=== PATIENT | male | born 1980 | race Caucasian/White ===

== ENCOUNTER 2016-06-04 18:56 | Emergency (ER) | payer OTHER ==
--- NOTE | 2016-06-04 19:10 | EDPHY ---
H & P Stated Complaint: VENTURA/Fatigue/ Back Pain Time Seen by Provider: 06/04/16 18:57 HPI/ROS: CHIEF COMPLAINT: Occipital headache HISTORY OF PRESENT ILLNESS: The patient presents to the ED with a 1 day history of an occipital headache. The patient reports his headache is moderate to severe in nature. He woke with a headache today. The patient denies a history of thunderclap headache. He is not anticoagulated. He has no prior history of headaches. The patient denies any fever, neck stiffness, numbness, weakness or additional complaints. He does have some pain in his thoracic spinal muscle groups bilaterally. REVIEW OF SYSTEMS: A comprehensive 10 point review of systems is otherwise negative aside from elements mentioned in the history of present illness. Source: Patient Exam Limitations: No limitations - Personal History Current Tetanus/Diphtheria Vaccine: Yes Current Tetanus Diphtheria and Acellular Pertussis (TDAP): Yes - Medical/Surgical History Hx Asthma: No Hx Chronic Respiratory Disease: No Hx Diabetes: No Hx Cardiac Disease: No Hx Renal Disease: No Hx Cirrhosis: No Hx Alcoholism: No Hx HIV/AIDS: No Hx Splenectomy or Spleen Trauma: No - Social History Smoking Status: Never smoked Alcohol Use: None Drug Use: None - Physical Exam Exam: General Appearance: Alert, no distress Eyes: Pupils equal and round no pallor or injection ENT, Mouth: Mucous membranes moist Respiratory: There are no retractions, lungs are clear to auscultation Cardiovascular: Regular rate and rhythm Gastrointestinal: Abdomen is soft and nontender, no masses, bowel sounds normal Neurological: A&O, normal motor function, normal sensory exam, normal cranial nerves Skin: Warm and dry, no rashes Musculoskeletal: Neck is supple nontender Extremities: symmetrical, full range of motion Constitutional: Initial Vital Signs Temperature (C) 37.3 C 06/04/16 18:58 Heart Rate 99 06/04/16 18:58 Respiratory Rate 16 06/04/16 18:58 Blood Pressure 142/93 H 06/04/16 18:58 O2 Sat (%) 96 06/04/16 18:58 O2 Delivery Mode Room Air Allergies/Adverse Reactions: No Known Allergies Allergy (Unverified 06/04/16 18:58) Home Medications: Medication Instructions Recorded NK [No Known Home Meds] 06/04/16 Medical Decision Making - Diagnostics Imaging Results: Imaging Impressions Head CT 06/04/16 19:19 Impression: Normal CT of the head. Findings and recommendations discussed with Blanco Mathur at 2000 hour, 06/04. Final report concurs with initial preliminary interpretation. ED Course/Re-evaluation: The patient presents to the ED with a 1 day history of an occipital headache. The patient is noted to be neurologically intact. He is afebrile without meningeal symptoms. The patient had an IV established. He received IV Benadryl , Toradol, dexamethasone and Reglan. The patient was taken for CT scan of the head without contrast which demonstrates no evidence of intracranial hemorrhage or other acute abnormalities. The study was reviewed by myself and discussed with radiologist Dr. Watts. Patient was re-evaluated at 8:30 p.m. and is feeling better. At this point time I have a low suspicion for subarachnoid hemorrhage I do not feel that lumbar puncture is indicated. The patient is comfortable returning to the ED for any worsening symptoms, fever or new neurologic symptoms. Plan will be for symptomatic management with Tylenol and ibuprofen as needed. Patient has no history or physical exam findings worrisome for dissection. He has no history of neck injury or cervical manipulation. Re-evaluated at 9:00 p.m.: Patient states his headache has resolved. He is comfortable being discharged home. He is provided with customary aftercare instructions and return precautions. Differential Diagnosis: Differential diagnosis considered includes intracranial hemorrhage, tension headache, subarachnoid hemorrhage - Data Points Medications Given: Discontinued Medications Dexamethasone (Decadron Injection) 10 mg IVP EDNOW ONE Stop: 06/04/16 19:20 Last Admin: 06/04/16 19:38 Dose: 10 mg Diphenhydramine HCl (Benadryl Injection) 25 mg IVP EDNOW ONE Stop: 06/04/16 19:20 Last Admin: 06/04/16 19:38 Dose: 25 mg Sodium Chloride (Ns) 1,000 mls @ 0 mls/hr IV ONCE ONE PRN Reason: Wide Open Stop: 06/04/16 19:24 Last Admin: 06/04/16 19:38 Dose: 1,000 mls Ketorolac Tromethamine (Toradol) 30 mg IVP EDNOW ONE Stop: 06/04/16 19:20 Last Admin: 06/04/16 19:38 Dose: 30 mg Metoclopramide HCl (Reglan Injection) 10 mg IVP EDNOW ONE Stop: 06/04/16 19:20 Last Admin: 06/04/16 19:39 Dose: 10 mg Departure - Departure Disposition: Home, Routine, Self-Care Clinical Impression: Headache Condition: Good Instructions: General Headache (ED) Additional Instructions: 1. Tylenol and ibuprofen as needed for pain. 2. Please return to the emergency department for worsening headache, fever, numbness, weakness or other concerns. 3. Please schedule a follow-up appointment with a neurologist for any ongoing symptoms. Referrals: Maikol Hernandez DO [Medical Doctor] - As per Instructions
[2016-06-04] MEDS ORDERED: KETOROLAC 30 MG/1 ML SDV IVP ONE (19:19)
[2016-06-04] MEDS ORDERED: DEXAMETHASONE 10 MG/ML VIAL IVP ONE (19:19)
[2016-06-04] MEDS ORDERED: METOCLOPRAMIDE 10 MG/2 ML VIAL IVP ONE (19:19)
[2016-06-04] MEDS ORDERED: NS 1,000 ML IV ONE (19:23)
[2016-06-04] MEDS ORDERED: fentaNYL 100 MCG/2 ML INJ IVP ONE (20:07)
[2016-06-04 20:55] VITALS: BP 109/78; PULSE 86; RESP 20; TEMP 98.1; O2SAT 94
== END 2016-06-04 20:59 | disposition home or self-care (01) ==
DX: R51 Headache (principal)
CPT/HCPCS: 96374; J1200; J1885; J2765